=== PATIENT | male | born 1960 | race African-American/Black ===

== ENCOUNTER 2018-04-27 11:04 | Emergency (ER) | payer SELFPAY ==
[~2018-04-27] VITALS: Ht 165.1 cm; Wt 91.0 kg
[~2018-04-27 11:04] MED LIST: ALBUTEROL; ATROVENT; BENADRYL; HYDR25TA; LISINOPRIL HCTZ; LOP25; MECLIZINE; PSYLLIUM; SIMVASTATIN; TRAMADOL; VICODIN; VITAMIN D; ZPAK
[2018-04-27 12:17] LABS: CLARITY URINE CLEAR (CLEAR); COLOR URINE YELLOW (YELLOW); KETONES URINE NEGATIVE (NEGATIVE); LEUKOCYTE ESTERASE URINE NEGATIVE (NEGATIVE); NITRITE URINE NEGATIVE (NEGATIVE); OCCULT BLOOD URINE 2+ (NEGATIVE); PROTEIN URINE 2+ (NEGATIVE); SPECIFIC GRAVITY URINE 1.015 (1.005-1.030); UROBILINOGEN URINE 0.2 E.U./dL (0.2-1.0)
[2018-04-27 12:39] LABS: HEMATOCRIT. 47.3 % (42.0-52.0); HEMOGLOBIN. 15.6 g/dL (14.0-18.0); MEAN CORPUSCULAR HEMOGLOBIN 26.8 pg (28.0-32.0); MEAN CORPUSCULAR VOLUME 81.4 fL (80.0-94.0); MEAN PLATELET VOLUME 7.4 fl (7.4-10.4); PLATELET 261 x1000/uL (130-400); RED BLOOD CELL COUNT 5.82 mill/uL (4.7-6.1)
[2018-04-27 12:47] LABS: CHLORIDE 106 mEq/L (98-107)
[2018-04-27 13:05] LABS: PLATELET ESTIMATE NORMAL
[2018-04-27 15:38] VITALS: BP 171/98
== END 2018-04-27 15:41 | disposition home or self-care (01) ==
LOC: ER 13:10
DX: N40.1 Benign prostatic hyperplasia with lower urinary tract symptoms (principal); R33.8 Other retention of urine; I10 Essential (primary) hypertension; J45.909 Unspecified asthma, uncomplicated; F17.200 Nicotine dependence, unspecified, uncomplicated; Z98.890 Other specified postprocedural states
CPT/HCPCS: 36415; 51702; 80053; 81003; 85025; 99284; Z7610; A4315

== ENCOUNTER 2018-05-17 16:00 | Emergency (ER) | payer SELFPAY ==
[~2018-05-17] VITALS: Ht 165.1 cm; Wt 91.0 kg
[2018-05-17 17:56] LABS: CLARITY URINE TURBID (CLEAR); COLOR URINE DARK YELLOW (YELLOW); KETONES URINE TRACE (NEGATIVE); LEUKOCYTE ESTERASE URINE 3+ (NEGATIVE); NITRITE URINE POSITIVE (NEGATIVE); OCCULT BLOOD URINE 3+ (NEGATIVE); PROTEIN URINE 2+ (NEGATIVE); SPECIFIC GRAVITY URINE 1.025 (1.005-1.030)
[2018-05-17] MEDS ORDERED: HYDROCODONE/ACETAMINOPHEN 5/325MG TABLET PO STA (21:57)
[2018-05-17 22:32] LABS: BASOPHILS % 0.3 % (0.0-2.0); EOSINOPHILS % 2.9 % (0.0-5.0); HEMATOCRIT. 41.5 % (42.0-52.0); HEMOGLOBIN. 13.7 g/dL (14.0-18.0); MEAN CORPUSCULAR HEMOGLOBIN 26.4 pg (28.0-32.0); MEAN CORPUSCULAR VOLUME 80.2 fL (80.0-94.0); MEAN PLATELET VOLUME 6.9 fl (7.4-10.4); MONOCYTES % 10.7 % (2.0-8.0); NEUTROPHILS % 74.1 % (40.0-76.0); PLATELET 302 x1000/uL (130-400); RED BLOOD CELL COUNT 5.18 mill/uL (4.7-6.1); RED CELL DISTRIBUTION WIDTH 15.6 % (11.6-14.6)
[2018-05-17 22:39] LABS: CHLORIDE 104 mEq/L (98-107)
[2018-05-17 22:47] VITALS: BP 165/98
== END 2018-05-18 00:51 | disposition home or self-care (01) ==
LOC: ER 18:02
DX: N40.1 Benign prostatic hyperplasia with lower urinary tract symptoms (principal); N39.0 Urinary tract infection, site not specified; R33.8 Other retention of urine; D72.829 Elevated white blood cell count, unspecified; I10 Essential (primary) hypertension; J45.909 Unspecified asthma, uncomplicated; F17.200 Nicotine dependence, unspecified, uncomplicated
CPT/HCPCS: 36415; 76870; 87077; 93976; 99285

== ENCOUNTER 2021-02-23 21:47 | Emergency (ER) | payer OTHER ==
[~2021-02-23] VITALS: Ht 165.1 cm; Wt 82.0 kg
[2021-02-24] MEDS ORDERED: KETOROLAC 60MG/2ML VIAL IM ONE (00:30)
[2021-02-24 01:33] VITALS: BP 154/83
[2021-02-24] MEDS ORDERED: METHOCARBAMOL 750MG TABLET PO SCH ×2 (02:00→06:00)
[2021-02-24] MEDS ORDERED: NAPR-681 MT (03:13)
[2021-02-24] MEDS ORDERED: METH-653 MT (03:13)
== END 2021-02-24 03:42 | disposition home or self-care (01) ==
LOC: ER 21:47
DX: S39.012A Strain of muscle, fascia and tendon of lower back, initial encounter (principal); X58.XXXA Exposure to other specified factors, initial encounter; Y93.89 Activity, other specified; Y92.89 Other specified places as the place of occurrence of the external cause; Y99.8 Other external cause status; Z79.899 Other long term (current) drug therapy
CPT/HCPCS: 96372; 99283; J1885